=== PATIENT | female | born 1945 | race Caucasian/White ===

== ENCOUNTER 2017-08-27 06:55 | Day surgery (SDC) | payer OTHER ==
[~2017-08-27] VITALS: Ht 170.2 cm; Wt 96.2 kg
[~2017-08-27 06:55] MED LIST: AEC81 PO; CALC-1174 PO; ENAL20TA PO; MAGN400C PO; METF500T6 PO; POTA25TA13 PO; PREMC VG; PROG200C7 PO; ROSU5TAB18 PO; SODIUM CHLORIDE 0.9% 1000ML 1,000 ML IV ONE
[2017-08-27 07:13] VITALS: BP 160/62
[2017-08-27] MEDS ORDERED: PROPOFOL 10 MG/ML 20ML VIAL IV ONE ×2 (07:51→08:10)
[2017-08-27 08:29] VITALS: BP 97/38
== END 2017-08-27 09:03 | disposition home or self-care (01) ==
LOC: DAH 06:55
PROVIDERS: ATTEND Internal Medicine Gastroenterology
DX: Z09 Encounter for follow-up examination after completed treatment for conditions other than malignant neoplasm (principal); K44.9 Diaphragmatic hernia without obstruction or gangrene; K21.0 Gastro-esophageal reflux disease with esophagitis; I10 Essential (primary) hypertension; G47.33 Obstructive sleep apnea (adult) (pediatric); E11.9 Type 2 diabetes mellitus without complications; E78.5 Hyperlipidemia, unspecified; F32.9 Major depressive disorder, single episode, unspecified; Z90.710 Acquired absence of both cervix and uterus; Z98.890 Other specified postprocedural states; Z86.010 Personal history of colon polyps
CPT/HCPCS: 43235; G0105; 82948; 93005; A4606; J2704; J7030

== ENCOUNTER → 2018-09-26 | Outpatient (CLI) | payer OTHER ==
[~2018-09-26] MED LIST changes: +METF-444 PO; -METF500T6 PO; +ROSU5TAB11 PO; -ROSU5TAB18 PO; -SODIUM CHLORIDE 0.9% 1000ML 1,000 ML IV ONE
== END | disposition home or self-care (01) ==
LOC: OIH 11:19
PROVIDERS: ATTEND Nurse Practitioner Adult Health
DX: R05 Cough (principal)
CPT/HCPCS: 71046

== ENCOUNTER 2022-06-08 12:00 | Observation (INO) | payer MEDICARE ==
[~2022-06-08] VITALS: Ht 170.2 cm; Wt 90.9 kg
[2022-06-08 10:19] LABS: BASOPHILS % (AUTO) 0.6 % (0.0-5.0); EOSINOPHILS % (AUTO) 3.7 % (0.0-8.0); HEMATOCRIT 40.1 % (36-48); LYMPHOCYTES % (AUTO) 34.3 % (21.0-51.0); MEAN CORPUSCULAR HEMOGLOBIN 28.2 pg (27.0-33.0); MEAN CORPUSCULAR HGB CONC 32.4 g/dL (32.0-36.0); MONOCYTES % (AUTO) 7.1 % (3.0-13.0); NEUTROPHILS % (AUTO) 54.3 % (40.0-77.0); PLATELET COUNT (AUTO) 159 K/uL (130-400); RED BLOOD CELL COUNT(AUTO) 4.61 MIL/uL (4.00-5.50); RED CELL DISTRIBUTION WIDTH 13.4 % (11.0-15.5); WHITE BLOOD COUNT (AUTO) 3.2 K/uL (4.8-10.8)
[2022-06-08 10:36] LABS: INR 0.93 (0.85-1.15); PROTHROMBIN TIME 10.1 SEC (9.6-11.6)
[2022-06-08 10:37] LABS: PARTIAL THROMBOPLASTIN TIME 29.4 SEC (26.3-35.5)
[2022-06-08 10:39] LABS: ALBUMIN 3.8 g/dL (3.5-5.0); CARBON DIOXIDE 26 mmol/L (21-32); CHLORIDE 103 mmol/L (101-111); CREATININE 0.8 mg/dL (0.5-1.5); GLOMERULAR FILTR. RATE CALC 74 mL/min (>60); GLUCOSE,RANDOM 95 mg/dL (70-105); POTASSIUM 3.8 mmol/L (3.5-5.1); SODIUM SERUM 139 mmol/L (136-145); UREA NITROGEN, BLOOD 18 mg/dL (7-18)
[2022-06-08 10:47] LABS: CRP QUANTITATIVE < 2.00 mg/L (0.00-9.0)
[~2022-06-08 12:00] MED LIST changes: -CALC-1174 PO; -ENAL20TA PO; -METF-444 PO; -POTA25TA13 PO; -PREMC VG; -PROG200C7 PO; -ROSU5TAB11 PO
[2022-06-08 14:14] LABS: APPEARANCE,URINE CLEAR (CLEAR); BILIRUBIN,URINE NEGATIVE (NEGATIVE); COLOR,URINE YELLOW (YELLOW); GLUCOSE, URINE (UA) NEGATIVE (NEGATIVE); KETONES,URINE NEGATIVE (NEGATIVE); LEUKOCYTE ESTERASE ,URINE NEGATIVE Leu/uL (NEGATIVE); NITRATE,URINE NEGATIVE (NEGATIVE); OCCULT BLOOD,URINE NEGATIVE (NEGATIVE); PROTEIN,URINE NEGATIVE (NEGATIVE); UROBILINOGEN,URINE 0.2 mg/dL (0.2-1.0)
[2022-06-09 09:56] VITALS: BP 180/80
[2022-06-09] MEDS ORDERED: PROLIA SQ (11:00)
[2022-06-09] MEDS ORDERED: HYDRALAZINE PO (11:00)
[2022-06-09] MEDS ORDERED: NITR100C PO (11:00)
[2022-06-09] MEDS ORDERED: AMLO-257 PO (11:00)
[2022-06-09] MEDS ORDERED: ANAS1TAB49 PO (11:00)
[2022-06-09] MEDS ORDERED: PANT40TA54 PO (11:00)
[2022-06-09] MEDS ORDERED: DICL20GE TP (11:00)
[2022-06-09] MEDS ORDERED: VITD PO (11:00)
[2022-06-09] MEDS ORDERED: LEVO75CA5 PO (11:00)
[2022-06-09] MEDS ORDERED: ROSU10TA28 PO (11:00)
[2022-06-09] MEDS ORDERED: OLME40TA18 PO (11:00)
[2022-06-09] MEDS ORDERED: ESCI-8 PO (11:00)
[2022-06-09] MEDS ORDERED: CALCIUM PO (11:00)
[2022-06-10] VITALS (26 sets, daily range): BP systolic 114–152; BP diastolic 38–70
[2022-06-10] MEDS ORDERED: CEFAZOLIN SODIUM 1 GM VIAL IVPB SCH (05:00)
[2022-06-10] MEDS ORDERED: LACTATED RINGERS 1000ML 1,000 ML IV ONE (06:54)
[2022-06-10] MEDS ORDERED: ROPIVACAINE 0.5% 5MG/ML 30ML IJ ONE ×3 (07:51→10:47)
[2022-06-10] MEDS ORDERED: TRANEXAMIC ACID 1000MG/10ML ONE (07:52)
[2022-06-10] MEDS ORDERED: KETOROLAC 30MG VIAL (30MG/ML) ONE (07:52)
[2022-06-10] MEDS ORDERED: ONDANSETRON 4MG INJ ONE (10:27)
[2022-06-10] MEDS ORDERED: PROPOFOL 10 MG/ML 20ML VIAL IV ONE (10:27)
[2022-06-10] MEDS ORDERED: ROCURONIUM 10MG/1ML SYR 10 MG/ML ML ONE (10:27)
[2022-06-10] MEDS ORDERED: MIDAZOLAM HCL 1 MG/ML 2ML VIAL ONE (10:27)
[2022-06-10] MEDS ORDERED: FENTANYL CITRATE PF 50 MCG/1 ML 2ML VIAL ONE ×2 (10:28→12:51)
[2022-06-10] MEDS ORDERED: DEXAMETHASONE SOD PHOSPHATE 4 MG/ML 1ML VIAL ONE (10:35)
[2022-06-10] MEDS ORDERED: CEFAZOLIN SODIUM 2 GM VIAL IVPB ONE (10:43)
[2022-06-10] MEDS ORDERED: TRANEXAMIC ACID 1000MG/10ML IV ONE ×2 (10:45→12:44)
[2022-06-10] MEDS ORDERED: KETOROLAC 30MG VIAL (30MG/ML) IM ONE (10:48)
[2022-06-10] MEDS ORDERED: PHENYLEPHRINE HCL 10 MG/ML 1ML VIAL IV ONE (11:07)
[2022-06-10] MEDS ORDERED: NEOSTIGMINE 5MG/5ML SYR IV ONE (12:43)
[2022-06-10] MEDS ORDERED: GLYCOPYRROLATE 1 MG/5 ML SYRINGE ONE (12:43)
[2022-06-10] MEDS ORDERED: MEPERIDINE-PF 25 MG/ML SYG ONE ×3 (12:51→13:50)
[2022-06-10] MEDS ORDERED: FERROUS FUMARATE 324 MG TABLET PO PRN (13:00)
[2022-06-10] MEDS: 0.9%NACL 1000ML 1,000 ML IV SCH ×2 (13:00→23:00)
[2022-06-10] MEDS ORDERED: ONDANSETRON 4MG INJ IVP PRN (13:00)
[2022-06-10] MEDS ORDERED: POTASSIUM CHLORIDE 20MEQ/100ML 100 ML IV PRN (13:00)
[2022-06-10] MEDS ORDERED: CYCLOBENZAPRINE HCL 10 MG TABLET PO PRN (13:00)
[2022-06-10] MEDS ORDERED: KCL 20 MEQ ERTAB PO PRN (13:00)
[2022-06-10] MEDS ORDERED: POTASSIUM CHLORIDE 10% ELIXIR 20 MEQ/15 ML UDCUP PO PRN (13:00)
[2022-06-10] MEDS ORDERED: LIDOCAINE HCL-MPF 1% 2ML VIAL IV PRN (13:00)
[2022-06-10] MEDS ORDERED: TRAMADOL HCL 50 MG TABLET PO PRN (13:00)
[2022-06-10] MEDS: GABAPENTIN 100 MG CAPSULE PO SCH ×2 (15:50→20:41)
[2022-06-10] MEDS: KETOROLAC 15MG/ML VIAL (15MG/ML) IV SCH ×2 (15:50→22:53)
[2022-06-10] MEDS: HYDROCODONE/ACETAMINOPHEN 5/325 MG TAB PO PRN (16:32)
[2022-06-10] MEDS ORDERED: HYDROCODONE/ACETAMINOPHEN 5/325 MG TAB ONE (16:32)
[2022-06-10] MEDS: CEFAZOLIN SODIUM 2 GM VIAL IVP SCH (17:05)
[2022-06-11] VITALS: BP 121/49
[2022-06-11] MEDS: CEFAZOLIN SODIUM 2 GM VIAL IVP SCH (02:05)
[2022-06-11 03:51] VITALS: BP 138/55
[2022-06-11 04:41] LABS: HEMATOCRIT 31.9 % (36-48); MEAN CORPUSCULAR HEMOGLOBIN 28.6 pg (27.0-33.0); MEAN CORPUSCULAR VOLUME 89.4 fL (79-99); RED BLOOD CELL COUNT(AUTO) 3.57 MIL/uL (4.00-5.50); RED CELL DISTRIBUTION WIDTH 13.4 % (11.0-15.5)
[2022-06-11 04:56] LABS: CREATININE 0.8 mg/dL (0.5-1.5); POTASSIUM 4.2 mmol/L (3.5-5.1)
[2022-06-11] MEDS: KETOROLAC 15MG/ML VIAL (15MG/ML) IV SCH (06:03)
[2022-06-11] MEDS: HYDROCODONE/ACETAMINOPHEN 5/325 MG TAB PO PRN ×2 (06:47→20:41)
[2022-06-11 08:00] VITALS: BP 106/44
[2022-06-11] MEDS: 0.9%NACL 1000ML 1,000 ML IV SCH (08:08)
[2022-06-11] MEDS: ANASTROZOLE 1 MG PO SCH (09:00)
[2022-06-11] MEDS: CITALOPRAM 20 MG TABLET PO SCH (09:26)
[2022-06-11] MEDS: CALCIUM CARB 500MG PO PRN ×2 (09:26→20:41)
[2022-06-11] MEDS: ASPIRIN 325MG TAB PO SCH (09:26)
[2022-06-11] MEDS: CA 600MG+VIT D 400 UNIT TAB 1 TAB TABLET PO SCH (09:27)
[2022-06-11] MEDS: GABAPENTIN 100 MG CAPSULE PO SCH ×3 (09:27→20:40)
[2022-06-11] MEDS: HYDRALAZINE 25MG TABLET PO SCH ×3 (09:27→21:00)
[2022-06-11] MEDS: LEVOTHYROXINE 75 MCG TABLET PO SCH (09:27)
[2022-06-11] MEDS: PANTOPRAZOLE 40 MG TAB DR PO SCH (09:28)
[2022-06-11] MEDS: POLYETHYLENE GLYCOL 3350 17 GM POWD.PACK PO SCH (09:28)
[2022-06-11 12:00] VITALS: BP 101/45
[2022-06-11 16:00] VITALS: BP 108/30
[2022-06-11] MEDS ORDERED: KETOROLAC 15MG/ML VIAL (15MG/ML) IV PRN (16:00)
[2022-06-11 20:00] VITALS: BP 156/49
[2022-06-11] MEDS ORDERED: ATORVASTATIN 20 MG TABLET PO SCH (21:00)
[2022-06-11] MEDS ORDERED: LOSARTAN 100 MG TABLET PO SCH (21:00)
[2022-06-11] MEDS ORDERED: NITROFURANTOIN MONOHYD/M-CRYST 100 MG CAPSULE PO SCH (21:00)
[2022-06-11] MEDS ORDERED: MAGNESIUM OXIDE 400 MG TABLET PO SCH (21:00)
[2022-06-11] MEDS ORDERED: AMLODIPINE 5 MG TAB PO SCH (21:00)
[2022-06-12] VITALS: BP 119/42
[2022-06-12 04:00] VITALS: BP 130/46
[2022-06-12] MEDS: LEVOTHYROXINE 75 MCG TABLET PO SCH (05:41)
[2022-06-12] MEDS: HYDROCODONE/ACETAMINOPHEN 5/325 MG TAB PO PRN ×2 (05:42→10:10)
[2022-06-12 08:00] VITALS: BP 108/45
[2022-06-12] MEDS: ANASTROZOLE 1 MG PO SCH (09:00)
[2022-06-12] MEDS: HYDRALAZINE 25MG TABLET PO SCH (09:00)
[2022-06-12] MEDS: GABAPENTIN 100 MG CAPSULE PO SCH (10:12)
[2022-06-12] MEDS: CITALOPRAM 20 MG TABLET PO SCH (10:12)
[2022-06-12] MEDS: POLYETHYLENE GLYCOL 3350 17 GM POWD.PACK PO SCH (10:12)
[2022-06-12] MEDS: CA 600MG+VIT D 400 UNIT TAB 1 TAB TABLET PO SCH (10:13)
[2022-06-12] MEDS: PANTOPRAZOLE 40 MG TAB DR PO SCH (10:13)
[2022-06-12] MEDS: ASPIRIN 325MG TAB PO SCH (10:14)
[2022-06-12] MEDS ORDERED: BISACODYL 10 MG SUPP.RECT RC ONE (10:34)
[2022-06-12] MEDS ORDERED: HYDR-4060 PO (11:33)
[2022-06-12] MEDS ORDERED: CYCL-309 PO (11:33)
[2022-06-12] MEDS ORDERED: ASPI-1026 PO (11:33)
[2022-06-12] MEDS ORDERED: GABA100C PO (11:33)
[2022-06-12] MEDS ORDERED: DOCU-116 PO (11:33)
[2022-06-12] MEDS ORDERED: BISACODYL 10 MG SUPP.RECT RC PRN (13:00)
[2022-06-13] MEDS ORDERED: BISACODYL 10 MG SUPP.RECT RC PRN (13:00)
== END 2022-06-12 13:45 | disposition home or self-care (01) ==
LOC: DAHIP 06-10 06:50 → EDSTATUS 06-10 12:00 → 4CH 06-10 14:46
PROVIDERS: ADMIT Student in an Organized Health Care Education/Training Program; ATTEND Student in an Organized Health Care Education/Training Program
DX: M17.12 Unilateral primary osteoarthritis, left knee (principal); Z20.822 Contact with and (suspected) exposure to COVID-19; D50.0 Iron deficiency anemia secondary to blood loss (chronic); K21.9 Gastro-esophageal reflux disease without esophagitis; I10 Essential (primary) hypertension; F32.A Depression, unspecified; Z79.899 Other long term (current) drug therapy
CPT/HCPCS: 82040; 80048 ×2; 85025; 85610; 85730; 87088; 84134; 86140; 87426; 81003; 36415 ×2; 87641; 27447; 96374; 96376 ×3; 96375; 76942; 64447; 73560; 97161; 97039 ×5; 93005; 85027; 97116 ×4; 97530; G0378 ×46; G0379; A4600; J7120; J3010 ×2; J0690 ×3; J3490 ×4; J2710; J2250; J2704; J2405; J1885 ×5; J1100; J2175 ×3; J2795 ×3; J2370; C1713; C1776 ×2; A5120; A4215; A4223; A4222; A4221; A4663

== ENCOUNTER → 2023-08-16 | Outpatient (CLI) | payer MEDICARE ==
[~2023-08-16] VITALS: Ht 168.9 cm; Wt 93.3 kg
[~2023-08-16] MED LIST changes: +AMLO-257 PO; +ANAS1TAB49 PO; +ASPI-1026 PO; +CALCIUM PO; +CYCL-309 PO; +DENO60DI SQ; +DOCU-116 PO; +ESCI-8 PO; +GABA100C PO; +HYDR-4060 PO; +HYDRALAZINE PO; +LEVO75CA5 PO; +METH-811 PO; +MV-M1TAB20 PO; +NITR100C PO; +OLME40TA18 PO; +PANT40TA54 PO; +PROLIA SQ; +ROSU10TA28 PO; +UQORA PO; +VITD PO
[2023-08-16 12:39] VITALS: BP 163/60; PULSE 63; RESP 17
[2023-08-16 12:44] LABS: BASOPHILS # (AUTO) 0.03 K/uL (0.00-0.20); BASOPHILS % (AUTO) 0.5 % (0.0-5.0); EOSINOPHILS # (AUTO) 0.15 K/uL (0.00-0.70); EOSINOPHILS % (AUTO) 2.7 % (0.0-8.0); HEMATOCRIT 37.5 % (36-48); IMMATURE GRANULOCYTE ABSOLUTE 0.02 K/uL (0-1); LYMPHOCYTES % (AUTO) 18.4 % (21.0-51.0); MEAN CORPUSCULAR HEMOGLOBIN 28.9 pg (27.0-33.0); MEAN CORPUSCULAR HGB CONC 33.3 g/dL (32.0-36.0); MEAN CORPUSCULAR VOLUME 86.8 fL (79-99); MONOCYTES # (AUTO) 0.4 K/uL (0.1-1.0); MONOCYTES % (AUTO) 6.7 % (3.0-13.0); NEUTROPHILS # (AUTO) 3.9 K/uL (1.8-7.7); NEUTROPHILS % (AUTO) 71.3 % (40.0-77.0); PLATELET COUNT (AUTO) 179 K/uL (130-400); RED BLOOD CELL COUNT(AUTO) 4.32 MIL/uL (4.00-5.50); RED CELL DISTRIBUTION WIDTH 13.2 % (11.0-15.5); WHITE BLOOD COUNT (AUTO) 5.5 K/uL (4.8-10.8)
[2023-08-16 12:58] LABS: INR <= 0.93 (0.85-1.15); POTASSIUM 3.8 mmol/L (3.5-5.1); PROTHROMBIN TIME 10.3 SEC (9.6-11.6)
[2023-08-16 12:59] LABS: PARTIAL THROMBOPLASTIN TIME 34.2 SEC (26.3-35.5)
== END | disposition home or self-care (01) ==
LOC: DAH 10:00 → EDSTATUS 12:00
PROVIDERS: ATTEND Student in an Organized Health Care Education/Training Program
DX: Z01.818 Encounter for other preprocedural examination (principal); M25.562 Pain in left knee; M25.862 Other specified joint disorders, left knee; I21.9 Acute myocardial infarction, unspecified; R94.31 Abnormal electrocardiogram [ECG] [EKG]; Z96.652 Presence of left artificial knee joint
CPT/HCPCS: 80048; 85025; 85610; 85730; 36415; 93005; 87641; A6260

== ENCOUNTER 2023-09-03 05:45 | Day surgery (SDC) | payer MEDICARE ==
[2023-09-01 11:50] VITALS: BP 160/80; PULSE 68; RESP 15
[2023-09-01 11:56] LABS: ALBUMIN 3.7 g/dL (3.5-5.0); CREATININE 0.9 mg/dL (0.5-1.5); POTASSIUM 4.2 mmol/L (3.5-5.1)
[~2023-09-03] VITALS: Ht 170.2 cm; Wt 93.1 kg
[2023-09-03] VITALS (18 sets, daily range): BP systolic 117–171; BP diastolic 41–71; PULSE 57–79; RESP 12–20
[~2023-09-03 05:45] MED LIST changes: -ASPI-1026 PO; -CYCL-309 PO; -DOCU-116 PO; -GABA100C PO; -HYDR-4060 PO; -MV-M1TAB20 PO; -NITR100C PO; -PROLIA SQ; -ROSU10TA28 PO; -UQORA PO
[2023-09-03] MEDS ORDERED: SUCCINYLCHOLINE CHLORIDE 20 MG/ML 10 ML VIAL ONE (06:40)
[2023-09-03] MEDS ORDERED: DEXAMETHASONE SOD PHOSPHATE 10MG/ML 1ML VIAL ONE (06:40)
[2023-09-03] MEDS ORDERED: LIDOCAINE PF 100MG/5ML (2%) SYRINGE 5ML ONE (06:40)
[2023-09-03] MEDS ORDERED: FENTANYL CITRATE PF 50 MCG/1 ML 2ML VIAL ONE (06:41)
[2023-09-03] MEDS ORDERED: MIDAZOLAM HCL 1 MG/ML 2ML VIAL ONE (06:41)
[2023-09-03] MEDS ORDERED: NEOSTIGMINE METHYLSULFATE 1MG/ML IV ONE (06:41)
[2023-09-03] MEDS ORDERED: ONDANSETRON 4MG INJ ONE (06:41)
[2023-09-03] MEDS ORDERED: PROPOFOL 10 MG/ML 20ML VIAL IV ONE (06:41)
[2023-09-03] MEDS ORDERED: GLYCOPYRROLATE 0.2 MG/ML 5 ML VIAL ONE (06:41)
[2023-09-03] MEDS ORDERED: ROCURONIUM BROMIDE 10MG/1ML 5ML VL ONE (06:42)
[2023-09-03] MEDS: LACTATED RINGERS 1000ML 1,000 ML IV ONE (06:48)
[2023-09-03] MEDS: CEFAZOLIN SODIUM 2 GM VIAL ONE (06:49)
[2023-09-03] MEDS ORDERED: ACET-2079 PO (07:19)
[2023-09-03] MEDS ORDERED: BUPIVACAINE/PF 0.5% 30ML VIAL ONE (08:05)
[2023-09-03] MEDS: IPRATROPIUM/ALBUTEROL SULFATE 3 ML SOLUTION IH ONE ×2 (09:18→09:21)
== END 2023-09-03 10:40 | disposition home or self-care (01) ==
LOC: DAH 05:45
PROVIDERS: ATTEND Student in an Organized Health Care Education/Training Program
DX: M24.662 Ankylosis, left knee (principal); T84.82XA Fibrosis due to internal orthopedic prosthetic devices, implants and grafts, initial encounter; M67.262 Synovial hypertrophy, not elsewhere classified, left lower leg; M25.862 Other specified joint disorders, left knee; I10 Essential (primary) hypertension; F32.A Depression, unspecified; Z96.652 Presence of left artificial knee joint; Z79.899 Other long term (current) drug therapy; Z79.01 Long term (current) use of anticoagulants; Z98.890 Other specified postprocedural states; Z79.82 Long term (current) use of aspirin; Z90.49 Acquired absence of other specified parts of digestive tract
CPT/HCPCS: 82040; 80048; 36415; 29873; 93005; 94640; 29875; A4663; A4649; J7120; J3010; J1100; J0330; J3490 ×2; J2001; J2250; J2704; J2405; J2710; J0665; J0690; A6223; A4930; A5120; A4215; A4223; A4222; A4221; A6450

== ENCOUNTER 2024-01-23 10:30 | Emergency (ER) | payer MEDICARE ==
[~2024-01-23] VITALS: Ht 170.2 cm; Wt 97.5 kg
[~2024-01-23 10:30] MED LIST changes: +ACET-2079 PO
[2024-01-23] MEDS: KETOROLAC 15MG/ML VIAL (15MG/ML) IV ONE (11:31)
[2024-01-23] MEDS ORDERED: CYCL-309 PO (11:31)
[2024-01-23] MEDS: ORPHENADRINE 60MG/2ML IVP ONE (11:31)
[2024-01-23] MEDS: TRIAMCINOLONE ACETONIDE 40 MG/ML 1ML VIAL IM ONE (11:31)
[2024-01-23] MEDS ORDERED: KETO10TA2 PO (11:31)
[2024-01-23 11:56] VITALS: BP 157/67; PULSE 78; RESP 19; O2SAT 96
== END 2024-01-23 12:26 | disposition home or self-care (01) ==
LOC: EDH 10:30
DX: G89.29 Other chronic pain (principal); M54.50 Low back pain, unspecified; I10 Essential (primary) hypertension; E78.00 Pure hypercholesterolemia, unspecified; Z79.899 Other long term (current) drug therapy; Z98.890 Other specified postprocedural states
CPT/HCPCS: 99284; 96374; 96375; 96372; J3301; J1885; J2360

== ENCOUNTER → 2024-08-04 | Outpatient (CLI) | payer MEDICARE ==
[~2024-08-04] MED LIST changes: +CYCL-309 PO; +KETO10TA2 PO
== END | disposition home or self-care (01) ==
LOC: LAB 10:55
PROVIDERS: ATTEND Internal Medicine Cardiovascular Disease
DX: E03.9 Hypothyroidism, unspecified (principal)
CPT/HCPCS: 36415; 84443